=== PATIENT | female | born 1960 | race Caucasian/White ===

== ENCOUNTER → 2020-10-12 14:46 | Outpatient (CLI) | payer OTHER, SELFPAY ==
--- NOTE | 2020-10-12 | DI.RAD.S_ITS ---
PROCEDURE: XR DEXA AXIAL SKELETON INDICATIONS: Other specified disorders of bone density and structure, uns COMPARISON: None. FINDINGS: This blank DEXA report has been sent in error by the PACS system. The correct and complete report will be forthcoming in 1-2 days. Thank you for your patience and understanding. Dictated by: Jayna Johnson MD, PhD on 10/12/2020 at 17:17 Approved by: Jayna Johnson MD, PhD on 10/12/2020 at 17:17
== END ==
PROVIDERS: PCP Student in an Organized Health Care Education/Training Program; Referring Provider Student in an Organized Health Care Education/Training Program; Visit Provider Student in an Organized Health Care Education/Training Program
DX: M85.851 Other specified disorders of bone density and structure, right thigh (principal); Z78.0 Asymptomatic menopausal state; Z82.62 Family history of osteoporosis
CPT/HCPCS: 77080

== ENCOUNTER 2023-04-29 09:12 | Day surgery (SDC) | payer OTHER, SELFPAY ==
[2023-04-29 09:39] VITALS: BP 133/79; PULSE 96; RESP 16; TEMP 36.4; O2SAT 96; BMI 36.3
--- NOTE | 2023-04-29 09:52 | P.HP_ITS ---
History of Present Illness History of Present Illness Date Patient Seen: 04/29/23 Time Patient Seen: 09:52 Chief complaint: Colonoscopy Narrative: Here for colonoscopy. I reviewed the recent office note. She is had a change in bowel habit. [facility] Social History household members: spouse Smoking Status: Never smoker alcohol intake: current Meds Home Medications and Allergies Allergies Allergy/AdvReac Type Severity Reaction Status Date / Time iodine Allergy Severe Anaphylaxis Verified 04/29/23 09:50 Penicillins Allergy Severe Anaphylaxis Verified 04/29/23 09:50 Review of Systems Review of Systems ROS: Yes All systems reviewed with the patient and are negative except as otherwise documented Exam Vital Signs (past 8 hours): - 04/29/23 09:39 Temperature 97.5 F L Pulse Rate 96 H Respiratory Rate 16 Blood Pressure 133/79 Pulse Oximetry 96 Oxygen Delivery Method Room Air Oxygen Delivery Method Room Air Const General: cooperative HENMT Head: normal to inspection Eyes General: appearance normal, both eyes and all related structures Neck Neck: normal visual inspection Chest Chest: normal inspection of the chest Resp Effort & Inspection: normal respiratory effort Cardio Rate: regular rate GI Inspection: normal to inspection Skin General: no rashes or lesions noted Neuro General: patient alert and patient awake Extrem General: normal to inspection and no pedal edema Psych Appearance: grossly normal Assessment & Plan Assessment & Plan narrative: 62-year-old female with a change in bowel habit with intermittent liquid fecal incontinence. Colonoscopy is pursued.
--- NOTE | 2023-04-29 09:54 | PM.PREOP ---
Pre-operative Note Interval Note History & Physical reviewed/Exam performed by Physician: Yes Changes to H&P: No ASA Class (for procedural sedation): II
[2023-04-29] MEDS: LACTATED RINGERS 1,000 ML 150 ML IV (09:56)
[2023-04-29 10:44] VITALS: BP 89/50; PULSE 71; RESP 21; TEMP 36.7; O2SAT 96
[2023-04-29 10:46] VITALS: BP 123/64; PULSE 70
--- NOTE | 2023-04-29 10:46 | PM.OP.COLON ---
Operative Date/Time/Diagnoses Date of procedure: 04/29/23 Time of procedure: 10:47 Pre-op diagnosis: Change in bowel habit fecal incontinence Post-op diagnosis: same Procedure & Clinicians Study performed: Incomplete colonoscopy Same procedure as scheduled: Yes Indications: Change in bowel habits fecal incontinence Surgeon: Bob Mayers Procedure Notes SCOAP/Timeout: Done Procedure in detail: After the risks and benefits were explained, written and verbal informed consent was obtained. The patient was brought into the procedure room and placed into the left lateral decubitus position. Please see anesthesia notes for further sedation details. Digital rectal examination was accomplished. The scope was introduced into the patient and advanced under direct visualization to distal sigmoid. The patient had an exceptionally tortuous and fixed sigmoid and I could not safely advance beyond this depth.. The scope was slowly withdrawn to carefully examine the mucosa for any defects or lesions. Comprehensive imaging was accomplished throughout the rectum including the dentate line. The colon was decompressed, the scope was then removed from the patient who tolerated the procedure well. Pediatric colonoscope Bowel prep adequate Scope withdrawal time: Not applicable Sedation minutes: 11 Specimen(s): none sent Complications: none Impression: The patient had an exceedingly tortuous sigmoid colon and I could not get beyond about 20-25 cm from the anal verge. I did not identify any stricturing nor any distal mass lesions. There were no inflammatory features. Digital rectal exam disclosed grade 1 internal hemorrhoids only. We attempted multiple position changes into the supine and right lateral decubitus. Abdominal pressure was applied in a variety of locations and we attempted use of the stiffening alysa. All of this failed. The loop that was encountered secondary to this tortuosity could not be safely overcome and I elected to terminate the procedure rather than risk a perforation. Endoscopic diagnosis 1. Incomplete colonoscopy 2. Grade 1 hemorrhoids Post-procedure Plan for aftercare: 1. Consult has been placed for a salvage virtual colonography. Ideally this is accomplished today to avail of the current bowel preparation. 2. I suspect the patient has been dealing with fecal loading and overflow related diarrhea with incontinence based on the configuration of the sigmoid. I suspect a fiber based bowel regimen may help alleviate these symptoms quite considerably. Disposition: PACU
[2023-04-29 10:49] VITALS: BP 112/65; PULSE 69; RESP 24; O2SAT 96
[2023-04-29 10:53] VITALS: BP 110/61; PULSE 64; RESP 21; TEMP 36.1; O2SAT 97
== END 2023-04-29 11:20 | disposition home or self-care (01) ==
PROVIDERS: PCP Student in an Organized Health Care Education/Training Program; Referring Provider Internal Medicine Gastroenterology; Visit Provider Internal Medicine Gastroenterology
PROC: 0DJD8ZZ Inspection of Lower Intestinal Tract, Via Natural or Artificial Opening Endoscopic (ICD-10-PCS; CPT 45378; principal; 2023-04-29 10:30)
DX: R15.9 Full incontinence of feces (principal); K64.0 First degree hemorrhoids; Z53.09 Procedure and treatment not carried out because of other contraindication
CPT/HCPCS: 45378; J2704

== ENCOUNTER → 2023-08-19 10:45 | Outpatient (CLI) | payer OTHER, SELFPAY ==
--- NOTE | 2023-08-19 10:46 | DI.RAD.S_ITS ---
Bone Density Report Name: MATTHEW HALL Age: 62 Sex: Female Ethnicity: White Date of : 1960 Indication: postmenopausal; screening for osteoporosis; Referring Provider: MARTINE RODRIGUEZ MD Study: Bone densitometry was performed. Exam Date: August 19, 2023 Accession number: [id number] Bone Density: Region BMD T-score Z-score Classification AP Spine(L1-L4) 1.032 -0.1 1.5 Normal Femoral Neck (Left) 0.651 -1.8 -0.3 Osteopenia Total Hip (Left) 0.922 -0.2 1.0 Normal Femoral Neck (Right) 0.645 -1.8 -0.4 Osteopenia Total Hip (Right) 0.931 -0.1 1.1 Normal Total Hip Mean 0.927 -0.2 1.1 Normal World Health Organization criteria for BMD impression classify patients as: Normal (T-score at or above -1.0), Osteopenia (T-score between -1.0 and -2.5), or Osteoporosis (T-score at or below -2.5). 10-year Fracture Risk(1): Major Osteoporotic Fracture 8.9% Hip Fracture 1.0% Reported Risk Factors: [place] (), Neck BMD=0.645, BMI=36.3 (1) FRAX(R) Version 3.08. Fracture probability calculated for an untreated patient. Fracture probability may be lower if the patient has received treatment. Previous Exams: -- Region Exam Age BMD T-score BMD Change BMD Change Date g/cm2 vs Baseline vs Previous -- AP Spine (L1-L4) 08/19/2023 62 1.032 -0.1 -0.115 (-10.0%)# -0.115 (-10.0%)# 10/12/2020 59 1.146 0.9 Total Hip(Left) 08/19/2023 62 0.922 -0.2 -0.041 (-4.2%)# -0.041 (-4.2%)# 10/12/2020 59 0.963 0.2 Total Hip(Right) 08/19/2023 62 0.931 -0.1 0.007 (0.8%)# 0.007 (0.8%)# 10/12/2020 59 0.924 -0.1 -- *Denotes significance at 95% confidence level, LSC for AP Spine = 0.022 g/cm2, LSC for Total Hip = 0.027 g/cm2 # Denotes dissimilar scan types or analysis methods Impression: The patient has low bone mass, based on the Left Femoral Neck T-score. The patient has an estimated ten-year risk of hip fracture of 1% and an estimated ten-year risk of major fracture of 8.9%, based on the WHO FRAX algorithm. No significant bone loss was observed. Discussion: BONE DENSITY IS LOW AT ONE OR MORE SKELETAL SITES. This patient's lowest T-score is low at one or more skeletal sites. It meets the World Health Organization's (WHO) criteria for low bone mass (T-score between -1.0 and -2.5). The patient's 10-year risk of fracture as calculated by FRAX is less than the threshold where pharmacological therapy is recommended by the National Osteoporosis Foundation (NOF). However, all treatment decisions require clinical judgment and consideration of individual patient factors, including patient preferences, comorbidities, previous drug use, risk factors not captured in the FRAX model (e.g., frailty, falls, vitamin D deficiency, increased bone turnover, interval significant decline in bone density) and possible under or overestimation of fracture risk by FRAX. The patient should follow a healthful lifestyle (good nutrition with adequate calcium and vitamin D, and appropriate weight-bearing exercise). Follow-Up: Consider repeating this study in 2 to 3 years to reassess this patient's status, or sooner if there is some new clinical indication. Reported by: KELSEA ALY MD on 08/19/2023 11:44:00 AM.
== END ==
LOC: RAD 10:45
PROVIDERS: PCP Student in an Organized Health Care Education/Training Program; Referring Provider Student in an Organized Health Care Education/Training Program; Visit Provider Student in an Organized Health Care Education/Training Program
DX: M85.852 Other specified disorders of bone density and structure, left thigh (principal)
CPT/HCPCS: 77080